=== PATIENT | male | born 1950 | race Caucasian/White ===

== ENCOUNTER 2016-07-05 19:20 | Emergency (ER) | payer BC, MEDICARE ==
[2016-07-05 20:08] VITALS: BP 167/86
[2016-07-05] MEDS ORDERED: HYDROCODONE/ACETAMINOPHEN 5-325 MG TABLET PO ONE (21:08)
--- NOTE | 2016-07-05 21:14 | ER Document Report ---
ED Neck/Back Problem - General Chief Complaint: Neck Pain >24hrs old Stated Complaint: NECK PAIN Mode of Arrival: Ambulatory Information source: Patient - HPI Where: Home Notes: Patient has a history of chronic neck pain and states that he is due to have a cervical surgery performed in the next 2-3 weeks due to disks that are herniated. He states that yesterday he was working on a lawnmower and was using a hammer and states that the vibrations of using a hammer caused him to have increasing neck pain and pain in the left arm. He denies any weakness. He complains of some tingling down the left arm. He denies any blood thinners. He denies any fever. No chest pressures breath. No abdominal pain. No nausea vomiting diarrhea. No rash. No fever. He called his doctor who instructed him come emergency department to get something for pain. - Related Data Allergies/Adverse Reactions: ciprofloxacin [From Cipro] Adverse Reaction (Intermediate, Verified 07/05/16 20: 02) Ache all over, weakness ciprofloxacin HCl [From Cipro] Adverse Reaction (Intermediate, Verified 20:02) Ache all over, weakness Past Medical History - Social History Smoking Status: Unknown if Ever Smoked Family History: Reviewed & Not Pertinent - Past Medical History Cardiac Medical History: Reports: Hx Hypertension - x 3-4 yrs Denies: Hx Coronary Artery Disease, Hx Heart Attack Pulmonary Medical History: Denies: Hx Asthma, Hx Bronchitis, Hx COPD, Hx Pneumonia Neurological Medical History: Denies: Hx Cerebrovascular Accident, Hx Seizures Renal/ Medical History: Denies: Hx Peritoneal Dialysis Musculoskeltal Medical History: Reports Hx Arthritis - Back, elbow Past Surgical History: Denies: Hx Pacemaker - Immunizations Hx Diphtheria, Pertussis, Tetanus Vaccination: Yes - 2008 Hx Pneumococcal Vaccination: 12/09/09 Review of Systems - Review of Systems -: Yes All other systems reviewed and negative Physical Exam - Vital signs Vitals: Temp Pulse Resp BP Pulse Ox 98.7 F 85 16 167/86 H 93 07/05/16 20:02 07/05/16 20:02 07/05/16 20:02 07/05/16 20:02 07/05/16 20:02 - Notes Notes: GENERAL: alert, cooperative, nontoxic, no distress. HEAD: normocephalic, atraumatic EYES: conjunctiva pink without discharge, no external redness or swelling. EARS: no external swelling, no external redness NOSE: atraumatic, no external swelling MOUTH/THROAT: mucous membranes moist and pink NECK: soft, supple, full range of motion, no meningismus. Tenderness to palpation to the left lateral neck. No swelling. CHEST: no distress, lungs clear and equal throughout. No wheezing, rales, rhonchi. CARDIAC: regular rate and rhythm, no murmur, normal capillary refill, normal pulses. BACK: full range of motion, no CVA tenderness. EXTREMITIES: full range of motion of all extremities. No redness, no swelling. NEURO: alert and oriented 3, no focal deficits, full range of motion of all extremities. 5 out of 5 flexion extension of the upper extremities bilaterally. +1 biceps and triceps reflexes bilaterally. Normal sensation bilaterally. PYSCH: appropriate mood, affect. Patient is cooperative. SKIN: pink, warm, dry, no rash. Course - Re-evaluation Re-evalutation: 07/05/16 21:10 Patient is nontoxic appearing with stable vitals. The patient has history of chronic neck pain and worked a lawnmower and pounded with a hammer causing his pain to worsen. No traumatic injury. Is on no blood thinners. He has no sign of epidural abscess or bleed. Patient will be given a dose of pain medication here in the emergency department. Discharged home with Fatmata and Anita. Follow up with his neurosurgeon at next available appointment. Follow-up sooner for increased pain, fever, weakness, or any further concerns. The patient is noted to have elevated blood pressure during today's emergency department visit. The patient was informed of this finding. The patient was instructed that this may be related to pre-hypertension and requires further evaluation with a primary care provider. The patient has no hypertensive symptoms at this time. The patient's emergency department workup and current diagnosis were explained to the patient and or family. Follow-up instructions were provided. Medications if prescribed were discussed. Instructions for when to return to the emergency department including specific worrisome symptoms were discussed with the patient and/or family. - Vital Signs Vital signs: Temp Pulse Resp BP Pulse Ox 98.7 F 85 16 167/86 H 93 07/05/16 20:02 07/05/16 20:02 07/05/16 20:02 07/05/16 20:02 07/05/16 20:02 Discharge - Discharge Clinical Impression: Cervical radiculopathy Condition: Stable Disposition: HOME, SELF-CARE Instructions: Radiculopathy ([facility]) Additional Instructions: Take medications as prescribed. Follow up with her neurosurgeon at the next available appointment. Follow-up sooner for increased pain, weakness, fever, or any further concerns. Your blood pressure was elevated during today's visit. Have this rechecked with your doctor. The medication you were prescribed today may cause drowsiness. Do not drive or operate heavy machinery while taking this medication. Prescriptions: Hydrocodone/Acetaminophen [[place] 5-325 mg Tablet] 1 tab PO Q4 PRN #12 tablet PRN Reason: Naproxen 500 mg PO BID #20 tablet
== END 2016-07-05 21:30 | disposition home or self-care (01) ==
LOC: ER 19:20
DX: M54.12 Radiculopathy, cervical region (principal); M54.2 Cervicalgia; M79.602 Pain in left arm
CPT/HCPCS: 99283; A9270

== ENCOUNTER 2017-08-07 15:12 | Emergency (ER) | payer MEDICARE, OTHER ==
--- NOTE | 2017-08-07 15:27 | ER Document Report ---
ED Medical Screen (RME) - General Chief Complaint: Numbness Stated Complaint: RIGHT SIDE NUMBNESS Time Seen by Provider: 08/07/17 15:26 Notes: 66 years old male had a headache this morning subsequently felt numb in the entire right side of the body lasted for a few minutes and then it disappeared then again just prior to arrival had the similar symptoms therefore presented to the ED. Denies any current numbness tingling sensation or headache. Denies any focal weakness. Denies any other constitutional symptoms. I have greeted and performed a rapid initial assessment of this patient. A comprehensive ED assessment and evaluation of the patient, analysis of test results and completion of the medical decision making process will be conducted by additional ED providers. PHYSICAL EXAMINATION: GENERAL: Well-appearing, well-nourished and in no acute distress. HEAD: Atraumatic, normocephalic. EYES: Pupils equal round extraocular movements intact, conjunctiva are normal. ENT: Nares patent NECK: Normal range of motion LUNGS: No respiratory distress Musculoskeletal: Normal range of motion NEUROLOGICAL: Normal speech, normal gait. No pronator drift no focal neurological deficit PSYCH: Normal mood, normal affect. SKIN: Warm, Dry, normal turgor, no rashes or lesions noted. TRAVEL OUTSIDE OF THE [place] IN LAST 30 DAYS: No - Related Data Allergies/Adverse Reactions: ciprofloxacin [From Cipro] Adverse Reaction (Intermediate, Verified 08/07/17 15: 21) Ache all over, weakness ciprofloxacin HCl [From Cipro] Adverse Reaction (Intermediate, Verified 15:21) Ache all over, weakness Past Medical History - Social History Chew tobacco use (# tins/day): No Frequency of alcohol use: None Drug Abuse: None - Past Medical History Cardiac Medical History: Reports: Hx Hypertension - x 3-4 yrs Denies: Hx Coronary Artery Disease, Hx Heart Attack Pulmonary Medical History: Denies: Hx Asthma, Hx Bronchitis, Hx COPD, Hx Pneumonia Neurological Medical History: Denies: Hx Cerebrovascular Accident, Hx Seizures Renal/ Medical History: Denies: Hx Peritoneal Dialysis Musculoskeltal Medical History: Reports Hx Arthritis - Back, elbow Past Surgical History: Denies: Hx Pacemaker - Immunizations Hx Diphtheria, Pertussis, Tetanus Vaccination: Yes - 2008 Physical Exam - Vital signs Vitals: Temp Pulse Resp BP Pulse Ox 97.7 F 68 18 107/54 L 97 08/07/17 15:15 08/07/17 15:15 08/07/17 15:15 08/07/17 15:15 08/07/17 15:15 Course - Vital Signs Vital signs: Temp Pulse Resp BP Pulse Ox 97.7 F 68 18 107/54 L 97 08/07/17 15:15 08/07/17 15:15 08/07/17 15:15 08/07/17 15:15 08/07/17 15:15
--- NOTE | 2017-08-07 15:57 | RADIOLOGY REPORT (SQ) ---
EXAM DESCRIPTION: CT HEAD WITHOUT COMPLETED DATE/TIME: 08/07/2017 3:45 pm REASON FOR STUDY: numbness COMPARISON: None. TECHNIQUE: Axial images acquired through the brain without intravenous contrast. Images reviewed wi th bone, brain and subdural windows. Additional sagittal and coronal reconstructions were generated. Images stored on PACS. All CT scanners at this facility use dose modulation, iterative reconstruction, and/or weight based d osing when appropriate to reduce radiation dose to as low as reasonably achievable (ALARA). [facility]: Dose Right [facility]: CareDose [facility]: Dose Right [facility]: Teradose 4D [facility]: Campus Diaries RADIATION DOSE: CT Rad equipment meets quality standard of care and radiation dose reduction techniq ues were employed. CTDIvol: 53.2 mGy. DLP: 991 mGy-cm. mGy. LIMITATIONS: None. FINDINGS: VENTRICLES: Normal size and contour. CEREBRUM: No masses. No hemorrhage. No midline shift. No evidence for acute infarction. Few scatte red areas of low density in the white matter most likely chronic small vessel ischemic changes. Demy elinating disease is possible. CEREBELLUM: No masses. No hemorrhage. No alteration of density. No evidence for acute infarction. EXTRAAXIAL SPACES: No fluid collections. No masses. ORBITS AND GLOBE: No intra- or extraconal masses. Normal contour of globe without masses. CALVARIUM: No fracture. PARANASAL SINUSES: No fluid or mucosal thickening. SOFT TISSUES: No mass or hematoma. OTHER: No other significant finding. IMPRESSION: No acute findings. Minimal chronic deep periventricular white matter disease. EVIDENCE OF ACUTE STROKE: NO. COMMENT: Quality ID # [id number]: Final reports with documentation of one or more dose reduction techniques (e.g., Automated exposure control, adjustment of the mA and/or kV according to patient size, use of iterative reconstruction technique) TECHNICAL DOCUMENTATION: JOB ID: [id number] [employer]- All Rights Reserved Reading location - IP/workstation name: [email or web address]
--- NOTE | 2017-08-07 16:01 | RADIOLOGY REPORT (SQ) ---
EXAM DESCRIPTION: CHEST SINGLE VIEW COMPLETED DATE/TIME: 08/07/2017 3:46 pm REASON FOR STUDY: numbness COMPARISON: None. EXAM PARAMETERS: NUMBER OF VIEWS: One view. TECHNIQUE: Single frontal radiographic view of the chest acquired. RADIATION DOSE: NA LIMITATIONS: None. FINDINGS: LUNGS AND PLEURA: No opacities, masses or pneumothorax. No pleural effusion. MEDIASTINUM AND HILAR STRUCTURES: No masses. Contour normal. HEART AND VASCULAR STRUCTURES: Heart normal in size. Normal vasculature. BONES: No acute findings. HARDWARE: None in the chest. OTHER: No other significant finding. IMPRESSION: NO ACUTE RADIOGRAPHIC FINDING IN THE CHEST. TECHNICAL DOCUMENTATION: JOB ID: [id number] [employer]- All Rights Reserved Reading location - IP/workstation name: [email or web address]
[2017-08-07 16:13] LABS: INTERNATIONAL RATION (INR) 1.07; PARTIAL THROMBOPLASTIN TIME 30.5 SEC (23.5-35.8); PROTHROMBIN TIME 14.4 SEC (11.4-15.4)
[2017-08-07 16:18] LABS: ABSOLUTE BASOPHILS # (AUTO) 0.1 10^3/uL (0.0-0.2); ABSOLUTE EOSINOPHILS # (AUTO) 0.8 10^3/uL (0.0-0.6); ABSOLUTE LYMPHOCYTES (AUTO) 1.9 10^3/uL (0.5-4.7); ABSOLUTE NEUT (AUTO) 6.3 10^3/uL (1.7-8.2); EOSINOPHILS % (AUTO) 7.8 % (0-6); HEMATOCRIT 39.3 % (37.9-51.0); HEMOGLOBIN 13.9 g/dL (13.5-17.0); LYMPHOCYTES % (AUTO) 18.6 % (13-45); MEAN CORPUSCULAR HEMOGLOBIN 29.6 pg (27.0-33.4); MEAN CORPUSCULAR HGB CONC 35.4 g/dL (32.0-36.0); MEAN CORPUSCULAR VOLUME 84 fl (80-97); MONOCYTES % (AUTO) 10.1 % (3-13); PLATELET COUNT 233 10^3/uL (150-450); RED BLOOD COUNT 4.71 10^6/uL (4.35-5.55); SEGMENTED NEUTROPHILS % (AUTO) 62.5 % (42-78); TOTAL CELLS COUNTED % (AUTO) 100 %; WHITE BLOOD COUNT 10.1 10^3/uL (4.0-10.5)
--- NOTE | 2017-08-07 16:20 | ER Document Report ---
ED General - General Mode of Arrival: Ambulatory Information source: Patient TRAVEL OUTSIDE OF THE [place] IN LAST 30 DAYS: No <KUSHAL ZABALA - Last Filed: 08/07/17 16:33> <LINDSAY KATE - Last Filed: 08/07/17 21:20> - General Chief Complaint: Numbness Stated Complaint: RIGHT SIDE NUMBNESS Time Seen by Provider: 08/07/17 15:26 Notes: Patient is a 66 year old male with hypertension, arthritis and a history of multiple back surgeries and an anterior cervical fusion (2017) presents to the emergency department complaining of intermittent right sided numbness onset a few weeks ago worsening today. Patient describes the numbness as a fluttering that radiates into the right side of his face, back of head, right side of his back and right upper and lower extremities. Patient states the numbness is exacerbated when he is getting out of his truck and last a few minutes. He reports these episodes happening once last week and 2 weeks ago. Patient also complains of some dizziness and blurry vision in the right eye. Patient mentions having sciatica nerve surgery that left his great right toe numb, but further states his current symptoms feels completely different. (KUSHAL ZABALA) - Related Data Allergies/Adverse Reactions: ciprofloxacin [From Cipro] Adverse Reaction (Intermediate, Verified 08/07/17 15: 21) Ache all over, weakness ciprofloxacin HCl [From Cipro] Adverse Reaction (Intermediate, Verified 15:21) Ache all over, weakness Past Medical History - General Information source: Patient - Social History Smoking Status: Former Smoker - smoked for approximately 27 years, quit when he was 39. Chew tobacco use (# tins/day): No Frequency of alcohol use: Social - 3-4 beers a week Drug Abuse: None Family History: Reviewed & Not Pertinent Patient has suicidal ideation: No Patient has homicidal ideation: No - Past Medical History Cardiac Medical History: Reports: Hx Hypertension Musculoskeltal Medical History: Reports Hx Arthritis - Back, elbow Past Surgical History: Reports: Hx Appendectomy - childhood, Hx Cholecystectomy - 2010, Other - Anterior cervical fusion 2017 - Immunizations Hx Diphtheria, Pertussis, Tetanus Vaccination: Yes - 2008 Hx Pneumococcal Vaccination: 12/09/09 <KUSHAL ZABALA - Last Filed: 08/07/17 16:33> Review of Systems - Review of Systems Constitutional: No symptoms reported EENT: No symptoms reported Cardiovascular: No symptoms reported Respiratory: No symptoms reported Gastrointestinal: No symptoms reported Genitourinary: No symptoms reported Male Genitourinary: No symptoms reported Musculoskeletal: No symptoms reported Skin: No symptoms reported Hematologic/Lymphatic: No symptoms reported Neurological/Psychological: See HPI, Numbness -: Yes All other systems reviewed and negative <SAGRARIOKUSHAL MEANS - Last Filed: 08/07/17 16:33> Physical Exam - General General appearance: Appears well, Alert In distress: None - HEENT Head: Normocephalic, Atraumatic Eyes: Normal Conjunctiva: Normal Extraocular movements intact: Yes Pupils: PERRL Neck: Normal. No: Carotid bruit - Respiratory Respiratory status: No respiratory distress Chest status: Nontender Breath sounds: Normal Chest palpation: Normal - Cardiovascular Rhythm: Regular Heart sounds: Normal auscultation Murmur: No Friction rub: No Gallop: None auscultated - Abdominal Inspection: Normal Distension: No distension Bowel sounds: Normal Tenderness: Nontender Organomegaly: No organomegaly - Back Back: Normal - Extremities General upper extremity: Normal ROM, Normal strength General lower extremity: Normal ROM - Neurological Neuro grossly intact: Yes Cognition: Normal Orientation: AAOx4 [place] Coma Scale Eye Opening: Spontaneous Siva Coma Scale Verbal: Oriented [place] Coma Scale Motor: Obeys Commands Siva Coma Scale Total: 15 Speech: Normal Cranial nerves: Normal Motor strength normal: LUE, RUE, LLE, RLE Additional motor exam normals: Equal manager orange - Psychological Associated symptoms: Normal affect, Normal mood - Skin Skin Temperature: Warm Skin Moisture: Dry Skin Color: Normal <KUSHAL ZABALA - Last Filed: 08/07/17 16:33> - Vital signs Vitals: Temp Pulse Resp BP Pulse Ox 97.7 F 68 18 107/54 L 97 08/07/17 15:15 08/07/17 15:15 08/07/17 15:15 08/07/17 15:15 08/07/17 15:15 Course - Laboratory Result Diagrams: 08/07/17 15:55 08/07/17 15:55 <SAGRARIOKUSHAL MEANS - Last Filed: 08/07/17 16:33> - Laboratory Result Diagrams: 08/07/17 15:55 08/07/17 15:55 - EKG Interpretation by Me EKG shows normal: Sinus rhythm, [place], Intervals, QRS Complexes, ST-T Waves Rate: Normal - 59 Rhythm: NSR <LINDSAY KATE - Last Filed: 08/07/17 21:20> - Re-evaluation Re-evalutation: 08/07/17 21:19 Patient was discussed with Dr. Montoya, he recommended getting orthostatic blood pressure due to the history of hypertension and the low pressure recorded when he came in. However in talking with the patient is normal blood pressure is in the 115-120 systolic range and his blood pressure at this time is 117 systolic. With no stenoses noted on either side, and low blood pressure should not cause a unilateral numbness. Also discussed Aggrenox versus aspirin and he recommended aspirin. (LINDSAY KATE) - Vital Signs Vital signs: Temp Pulse Resp BP Pulse Ox 97.7 F 68 23 H 107/54 L 100 08/07/17 15:15 08/07/17 15:15 08/07/17 18:00 08/07/17 15:15 08/07/17 18:00 - Laboratory Laboratory results interpreted by me: 08/07/17 08/07/17 15:55 15:55 Eosinophils % 7.8 H Absolute Eosinophils 0.8 H Sodium 133.1 L Chloride 94 L Creatinine 1.38 H Est GFR (Non-Af Amer) 51 L Glucose 114 H Discharge <KUSHAL ZABALA - Last Filed: 08/07/17 16:33> <LINDSAY KATE - Last Filed: 08/07/17 21:20> - Discharge Clinical Impression: Numbness on right side Condition: Stable Disposition: HOME, SELF-CARE Additional Instructions: There is no clear explanation for the symptoms of right sided numbness that you have been experiencing. You will be given 1 dose of aspirin tonight. Take copies of the CT, carotid Doppler, MRI of the brain and MRA of the brain to see your primary care provider tomorrow to review the studies and your symptoms. Drink plenty of fluids and stay well-hydrated. RETURN TO THE EMERGENCY ROOM IF ANY NEW OR WORSENING SYMPTOMS. Haileyibe Attestation: 08/07/17 17:27 I personally performed the services described in the documentation, reviewed and edited the documentation which was dictated to the scribe in my presence, and it accurately records my words and actions. (LINDSAY KATE) Scribe Documentation - Scribe Written by Amena:: Amena Cheng, 08/07/2017 16:24 acting as scribe for :: Kahty <KUSHAL ZABALA - Last Filed: 08/07/17 16:33>
[2017-08-07 16:24] LABS: ALANINE AMINOTRANSFERASE 34 U/L (21-72); ALBUMIN 3.8 g/dL (3.5-5.0); ALKALINE PHOSPHATASE 63 U/L (38-126); ANION GAP 10 (5-19); ASPARTATE AMINO TRANSFERASE 28 U/L (17-59); BILIRUBIN,DIRECT 0.3 mg/dL (0.0-0.4); BILIRUBIN,TOTAL 0.3 mg/dL (0.2-1.3); BLOOD UREA NITROGEN 16 mg/dL (7-20); CALCIUM 9.5 mg/dL (8.4-10.2); CARBON DIOXIDE 29 mmol/L (22-30); CHLORIDE 94 mmol/L (98-107); CREATINE KINASE 85 U/L (55-170); GLUCOSE 114 mg/dL (75-110); SODIUM 133.1 mmol/L (137-145); TOTAL PROTEIN 6.8 g/dL (6.3-8.2)
[2017-08-07 16:36] LABS: CREATINE KINASE MB 0.77 ng/mL (<4.55)
[2017-08-07 16:37] LABS: TROPONIN I < 0.012 ng/mL
--- NOTE | 2017-08-07 17:19 | RADIOLOGY REPORT (SQ) ---
EXAM DESCRIPTION: CAROTID DOPPLER COMPLETED DATE/TIME: 08/07/2017 5:12 pm REASON FOR STUDY: Recurring transient right-sided numbness COMPARISON: None. TECHNIQUE: Grayscale ultrasound, Doppler velocity and spectra, and color Doppler images acquired of the extra-cranial carotid and vertebral arteries. Images stored on PACS. LIMITATIONS: None. FINDINGS: RIGHT CAROTID CCA Velocities: Within normal limits. ICA Velocities Peak systolic 1.06 m/s. End diastolic 0.37 m/s. Proximal ICA/CCA peak systolic ratio 1.45. Spectra normal. No significant plaque. LEFT CAROTID CCA Velocities: Within normal limits. ICA Velocities Peak systolic 0.85 m/s. End diastolic 0.35 m/s. Proximal ICA/CCA peak systolic ratio 1.04. Spectra normal. No significant plaque. VERTEBRAL ARTERIES: Antegrade flow. Normal waveforms. SUBCLAVIAN ARTERIES: No finding. OTHER: No other significant finding. IMPRESSION: NO HEMODYNAMICALLY SIGNIFICANT STENOSIS. COMMENT: Quality ID #[id number]: Velocity criteria are extrapolated from the diameter data as defined by t he Society of Radiologists in Ultrasound Consensus Conference. Radiology 2003: 229; 340-346. TECHNICAL DOCUMENTATION: JOB ID: [id number] [employer]- All Rights Reserved Reading location - IP/workstation name: [email or web address]
--- NOTE | 2017-08-07 20:13 | RADIOLOGY REPORT (SQ) ---
EXAM DESCRIPTION: MRI HEAD WITHOUT COMPLETED DATE/TIME: 08/07/2017 7:51 pm REASON FOR STUDY: Recurring transient right-sided numbness COMPARISON: None. TECHNIQUE: Multiplanar imaging includes non-contrasted T1, T2, FLAIR, and Diffusion with ADC map seq uences. Images stored on PACS. LIMITATIONS: Motion. FINDINGS: ANATOMY: No anomalies. Normal vascular flow voids. Pituitary fossa normal. CSF SPACES: Normal in size and contour. No hemorrhage. CEREBRUM: A few high-signal intensity lesions scattered throughout the white matter on FLAIR imaging with distribution suggesting chronic micro-vascular ischemic change. Sulci and gyri normal in size a nd contour. No evidence of hemorrhage, mass or extraaxial fluid collection. POSTERIOR FOSSA: No signal alteration. No hemorrhage. No edema, masses or mass effect. Internal edouard tory canals, cerebello-pontine angles, mastoids normal. DIFFUSION: Negative for acute or sub-acute infarction. ORBITS: No masses. Globes normal. PARANASAL SINUSES: No fluid levels. Mucosa normal. OTHER: No other significant finding. IMPRESSION: No acute findings. EVIDENCE OF ACUTE STROKE: NO. TECHNICAL DOCUMENTATION: JOB ID: [id number] [employer]- All Rights Reserved Reading location - IP/workstation name: [email or web address]
--- NOTE | 2017-08-07 20:14 | RADIOLOGY REPORT (SQ) ---
EXAM DESCRIPTION: MRA HEAD WITHOUT COMPLETED DATE/TIME: 08/07/2017 7:51 pm REASON FOR STUDY: Recurring transient right-sided numbness COMPARISON: None. TECHNIQUE: Axial 3-D [id number] acquisition imaging performed through the brain in the area of t he [place] of [place]. Images reformatted using 3-D MIPS. LIMITATIONS: None. FINDINGS: SOURCE IMAGES: No unexpected findings on source images. No large masses. 3-D MIP: No aneurysm. No occlusions. No significant stenosis. OTHER: No other significant finding. IMPRESSION: NORMAL MRA OF THE [place] OF [place]. TECHNICAL DOCUMENTATION: JOB ID: [id number] [employer]- All Rights Reserved Reading location - IP/workstation name: [email or web address]
[2017-08-07] MEDS ORDERED: ASPIRIN 325 MG TABLET PO ONE (21:14)
[2017-08-07 21:39] VITALS: BP 118/68
--- NOTE | 2017-08-07 23:07 | EKG REPORT ---
SEVERITY:- NORMAL ECG - SINUS RHYTHM : Confirmed by: Napoleon Lindquist 07-Aug-2017 23:06:56
== END 2017-08-07 21:40 | disposition home or self-care (01) ==
LOC: ER 15:12
DX: R20.0 Anesthesia of skin (principal); R42 Dizziness and giddiness; H53.8 Other visual disturbances; I10 Essential (primary) hypertension; Z98.1 Arthrodesis status; Z88.3 Allergy status to other anti-infective agents; Z87.891 Personal history of nicotine dependence; Z90.49 Acquired absence of other specified parts of digestive tract
CPT/HCPCS: 93005; 99285; 36415; 82553; 82550; 85025; 85610; 85730; 80053; 84484; 93880; 70551; 70544; 71045; 70450; 93010; A9270

== ENCOUNTER → 2017-10-10 | Outpatient (CLI) | payer MEDICARE, OTHER ==
--- NOTE | 2017-10-10 09:40 | RADIOLOGY REPORT (SQ) ---
EXAM DESCRIPTION: DAHLIA SWALLOW COMPLETED DATE/TIME: 10/10/2017 8:47 am REASON FOR STUDY: DYSPHAGIA R13.10 DYSPHAGIA, UNSPECIFIED COMPARISON: None. TECHNIQUE: Videofluoroscopic swallowing examination was performed in conjunction with speech patholo gy. Videofluoroscopic imaging was obtained and reviewed and these are the findings: RADIATION DOSE: 1 minutes 42 seconds of fluoroscopy was used. 1 images saved to PACS. LIMITATIONS: None FINDINGS: The patient was brought into the fluoro room and placed upright on a modified barium swall ow chair. The patient was then given multiple consistencies mixed with barium to swallow under live fluoroscopic video guidance. According to the Speech Pathologist there was trace laryngeal penetrati on without aspiration. Postoperative changes seen through the cervical spine with multiple level effu sions. Multiple level cervical osteophytes causing impression upon the proximal esophagus. Moderate cricopharyngeal hypertrophy. IMPRESSION: LARYNGEAL PENETRATION WITHOUT ASPIRATIONPLEASE SEE SPEECH PATHOLOGIST REPORT FOR OTHER FINDINGS AND RECOMMENDATIONS. COMMENT: Quality ID 145: Final reports for procedures using fluoroscopy that document radiation exp osure indices, or exposure time and number of fluorographic images (if radiation exposure indices are not available) TECHNICAL DOCUMENTATION: JOB ID: [id number] [employer]- All Rights Reserved Reading location - IP/workstation name: [email or web address]
--- NOTE | 2017-10-10 15:39 | ST Modified Barium Swallow ---
Recommendation - Recommendations Recommendations: Recommend liquid wash with solids due to valleculae residue. Other swallowing functioning good, no diet change recommendations. Medical Diagnoses - Medical Diagnoses Medical Diagnosis Description & ICD-10 Code(s): R13.10 dysphagia Other Medical Diagnoses/Co-Morbidities: per patient report: acid reflux, neck surgery 1.5 years ago for C3-5. ST Modified Barium Swallow - General Date: 10/10/17 Referring Physician: Dr. Lua Risks/Precautions: None Date of Onset: 03/11/17 - patient unable to give onset date Reason for Referral: choking - History History obtained from: Patient -: Medical - Patient reports getting choked on meats "for a long time". States that he has to chew meats very well before he swallows, and has to have plenty of liquid with meats. He reports that his breathing is unobstructed when this happens. Patient reports cervical spine surgery 1.5 years ago, no impact on swallowing from surgery. Medications: Per patient report: prilosec, blood pressure medication Allergies: per patient report: cipro - Functional Status Prior Functional Status: INDEPENDENT: feeding - choking with meats Current Functional Limitations: feeding - choking with meats - Subjective Patient/caregiver goal(s): safe swallow Cognitive-Linguistic Function: WNL Speech Intelligibility: WNL Current Nutritional Means: PO Current PO diet: Regular Current symptoms: other - choking with meats Pain: Patient reports, 2/5 - hand pain from pinched nerve - Objective Assessment: Upright, Left Lateral - Food Trials Used Food trials used: Thin liquids, Pureed, Regular The patient: Was Able to Self Feed - Oral-Motor Skills Dentition: Dentures-Upper, Dentures-Lower Velo-pharyngeal function: Unremarkable - Assessment Oral prep: Normal Labial closure: Adequate Leakage: None Mastication: Adequate Lingual Movement: Normal Oral stage: Normal for this Procedure - Pharyngeal Stage Initiation of Pharyngeal Stage Reflex: Normal Decreased laryngeal elevation: No Reduced Velopharyngeal Closure: no Reduced pressure generation: No reduced tongue-based retraction: No Pre-swallow pooling in valleculae: None Pre-Swallow pooling in pyriforms: None Reduced Thyro-Hyoid approximation: No Reduced epiglottic excursion: No Reduced pharyngeal peristalsis/contraction: No Multiple Swallows with: Cleared w/ Liquid Assist Post-swallow residulas vallecular: Moderate Post-Swallow residuals in pyriforms: None - Fall Risk Assessment Medications/Conditions that increase fall risks include: Antidepressants, sedatives, anti-arrhythmic, diuretic, benzodiazipenes, neuroleptics. BP regulation problems, cardiac problems, balance or gait deficits, neurological problems. Fall Risk Actions Taken: No action needed - Behavioral Observations During evaluation process patient: was pleasant, was cooperative, able to answer questions, provided medical history - Treatment / Educational Needs: Treatment/Education Needs: Treatment consisted of patient education on the role of the Speech Pathologist. Patient's plan of care and golas were communicated as well as scheduling and attendance policies. Recommendations for initial home program were shared. Patient demonstrated understanding and verbalized agreement. - Impression/Summary Laryngeal Penetration: No Tracheal Aspiration: no Patient presents with: Pharyngeal stage dysph., Mild-Moderate Risk of Aspiration: Minimal Risk of nutritional compromise: None Evaluation and Findings: Patient presents with functional swallow. Valleculae residue noted for solid trials, mild for pudding, moderate for jennifer cracker. Patient demonstrated good sensation of residue, mostly cleared with thin liquid wash, however, some residue remained. - Recommendations Solid diet recommendations: Regular Liquid Diet Modification: Thin Pt/Family education and followup with MD: Yes Dysphagia therapy with PLATFORM INSPECTOR: no Reflux Precautions: Taught to Patient Recommended techniques: Fully Upright During Meal, Small Bites and Sips, Alternate Bites/Sips Information, Precautions and Recommendations: Patient (Written), Patient (Verbal ) - Plan of Care Strategies to optimize patient understanding include:: ongoing assessment of educational needs, implementation of educational strategies, and re-education. - - -: Thank you for the opportunity to work with this patient and his/her family. Should you have any questions about this patient's plan or progress, I can be reached at [phone]. Charge G Code? - - -: Yes ST F.L. Impairment Category - Rationale Based On Rationale Based On: Clin Find., Obj Measures - Swallowing Current G8996: CI 1-19% Impaired Goal G8997: CI 1-19% Impaired Discharge G8998: CI 1-19% Impaired
== END ==
LOC: RAD 08:02
PROVIDERS: ATTEND Otolaryngology
DX: R13.10 Dysphagia, unspecified (principal)
CPT/HCPCS: 74230; 92611; G8996; G8997; G8998

== ENCOUNTER 2018-03-25 05:53 | Day surgery (SDC) | payer MEDICARE, OTHER ==
[2018-03-18 09:42] LABS: HEMATOCRIT 42.3 % (37.9-51.0); HEMOGLOBIN 14.9 g/dL (13.5-17.0); MEAN CORPUSCULAR HEMOGLOBIN 29.3 pg (27.0-33.4); MEAN CORPUSCULAR HGB CONC 35.1 g/dL (32.0-36.0); MEAN CORPUSCULAR VOLUME 83 fl (80-97); PLATELET COUNT 248 10^3/uL (150-450); RED BLOOD COUNT 5.07 10^6/uL (4.35-5.55); RED CELL DISTRIBUTION WIDTH 13.4 % (11.5-14.0); WHITE BLOOD COUNT 7.4 10^3/uL (4.0-10.5)
--- NOTE | 2018-03-18 12:55 | EKG REPORT ---
SEVERITY:- ABNORMAL ECG - SINUS RHYTHM FIRST DEGREE AV BLOCK : Confirmed by: Francis Ortiz MD 18-Mar-2018 12:55:17
[2018-03-25] MEDS ORDERED: MIDAZOLAM 2 MG/2 ML INJ ONE (07:39)
[2018-03-25] MEDS ORDERED: PROPOFOL INJ 200 MG/20 ML VIAL IV ONE (07:40)
[2018-03-25] MEDS ORDERED: DIPHENHYDRAMINE HCL 50 MG/ML VIAL IV PRN (08:36)
[2018-03-25] MEDS ORDERED: FENTANYL CITRATE INJ/PF 100 MCG/2 ML AMPUL IV PRN ×3 (08:36)
[2018-03-25] MEDS ORDERED: MEPERIDINE HCL/PF INJ 25 MG/1 ML DISP.SYRIN IV PRN (08:36)
[2018-03-25] MEDS ORDERED: OXYCODONE-ACETAMINOPHEN 5-325 MG TABLET PO PRN ×2 (08:36)
[2018-03-25] MEDS ORDERED: PROMETHAZINE HCL INJ 25 MG/1 ML VIAL IV PRN ×2 (08:36)
--- NOTE | 2018-03-25 09:01 | Discharge Summary ---
Discharge Summary (SDC) - Discharge Final Diagnosis: Normal screening colonoscopy. Date of Surgery: 03/25/18 Discharge Date: 03/25/18 Condition: Stable Treatment or Instructions: Discharge home. Diet as tolerated. Activity as tolerated. Follow-up with me as needed. Referrals: EDDIE VILLAR FNP [Primary Care Provider] - Discharge Diet: As Tolerated Respiratory Treatments at Home: Deep Breathing/Coughing, Incentive Spirometer Discharge Activity: Activity As Tolerated Home Care Assistance: None Needed Report the Following to Your Physician Immediately: Shortness of Breath, Nausea, Vomiting, Increase in Pain, Fever over 101 Degrees, Unusual Bleeding, Redness
--- NOTE | 2018-03-25 09:04 | Operative Report ---
Nonrecallable Operative Report DATE OF SURGERY: 03/25/18 PREOPERATIVE DIAGNOSIS: Screening colonoscopy POSTOPERATIVE DIAGNOSIS: 1. Normal screening colonoscopy. 2. Diverticulosis OPERATION: Normal screening colonoscopy SURGEON: LARS WHITTINGTON ANESTHESIA: LMAC TISSUE REMOVED OR ALTERED: None COMPLICATIONS: None apparent ESTIMATED BLOOD LOSS: None PROCEDURE: Procedure in detail: After informed consent was obtained, the patient was brought to the operating room and laid in the left lateral decubitus position. The endoscope was passed up the rectum, sigmoid colon, descending colon, transverse colon, down the ascending colon, and into the cecum. The ileocecal valve and appendiceal orifice were identified. The scope was then withdrawn, circumferentially noting the mucosa. The prep was excellent. The scope was withdrawn past the ascending colon, transverse colon, down the descending colon, and into the sigmoid colon. In the sigmoid colon there was found to be scattered diverticula, without signs of diverticulitis. The scope was withdrawn down into the rectum. A retroflexion maneuver was performed in the rectum, noting small internal hemorrhoids. The scope was straightened, air was suctioned from the rectum, the scope was removed, and the procedure was concluded. All sponge, instrument, and needle counts were correct x2. Please note there were no masses, lesions, polyps, bleeding, areas of inflammation, or other abnormalities (aside from the aforementioned diverticulosis) throughout the colon. Recommendation: Repeat colonoscopy in 10 years, unless symptoms develop.
[2018-03-25 12:08] VITALS: BP 151/70
== END 2018-03-25 10:10 | disposition home or self-care (01) ==
LOC: OROUT 05:53
PROVIDERS: ATTEND Surgery
DX: Z12.11 Encounter for screening for malignant neoplasm of colon (principal); K57.30 Diverticulosis of large intestine without perforation or abscess without bleeding; I10 Essential (primary) hypertension; E78.00 Pure hypercholesterolemia, unspecified; K21.9 Gastro-esophageal reflux disease without esophagitis; M50.30 Other cervical disc degeneration, unspecified cervical region; I49.9 Cardiac arrhythmia, unspecified; N40.0 Benign prostatic hyperplasia without lower urinary tract symptoms; N28.1 Cyst of kidney, acquired; M19.90 Unspecified osteoarthritis, unspecified site; R01.1 Cardiac murmur, unspecified; Z79.899 Other long term (current) drug therapy; Z01.818 Encounter for other preprocedural examination
CPT/HCPCS: 93005; 36415 ×2; 84132; 85027; 93010; G0121; J2250; J2704; 45378; 812